=== PATIENT | male | born 1960 | race Caucasian/White ===

== ENCOUNTER 2022-03-24 17:42 | Emergency (ER) | payer MEDICARE ==
[~2022-03-24 17:42] MED LIST: CYCLOBENZAPRINE10 MG PO; MEDROL 4MG DOSEP4 MG PO
[2022-03-24] MEDS ORDERED: NAPROXEN500 MG PO (19:10)
== END 2022-03-24 20:20 | disposition home or self-care (01) ==
LOC: FER 17:42
DX: S90.32XA Contusion of left foot, initial encounter (principal); F17.200 Nicotine dependence, unspecified, uncomplicated; W20.8XXA Other cause of strike by thrown, projected or falling object, initial encounter
CPT/HCPCS: 73630